=== PATIENT | female | born 1965 | race Two or more races ===

== ENCOUNTER 2023-04-29 09:35 | Outpatient (CLI) | payer BC | END 2023-04-29 09:41 | disposition home or self-care (01) | LOC: NUCLEAR 09:35 | PROVIDERS: ATTEND Internal Medicine | DX: E85.4 Organ-limited amyloidosis (principal); I10 Essential (primary) hypertension ==

== ENCOUNTER 2024-02-25 08:26 | Outpatient (CLI) | payer BC | END 2024-02-28 07:31 | disposition home or self-care (01) | LOC: NUCLEAR 08:26 | PROVIDERS: ATTEND Internal Medicine | DX: I10 Essential (primary) hypertension (principal); D86.0 Sarcoidosis of lung ==